=== PATIENT | male | born 2000 | race Hispanic/Latino ===

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

== ENCOUNTER 2024-01-07 15:24 | Emergency (ER) | payer SELFPAY ==
[~2024-01-07 15:24] MED LIST: Iopamidol 370 76% 100 ML VIAL ONE
[2024-01-07 15:58] LABS: #Basophils 0.1 thou/uL (0.0-0.2); #Eosinphils 0.1 thou/uL (0.0-0.7); #Lymphocytes 1.3 thou/uL (1.20-3.40); #Monocytes 0.6 thou/uL (0.11-0.59); #Neutrophils 11.2 thou/uL (1.40-6.50); %Basophils 0.6 % (0.0-1.0); %Eosinophils 0.4 % (0.0-10.0); %Lymphocytes 9.8 % (21.0-51.0); %Monocytes 4.8 % (0.0-10.0); %Neutrophils 84.4 % (42.0-75.0); Hematocrit 43.6 % (42.0-52.0); Mean Corpuscular Hemoglobin 30.6 pg (27.0-31.0); Mean Corpuscular Volume 95.5 fl (78.0-98.0); Mean Platelet Volume 6.5 fL (7.4-10.4); Platelet Count 280 10x3/uL (130-400); RBC Distribution Width 11.8 % (11.5-14.5); Red Blood Cell (RBC) Count 4.57 mill/uL (4.70-6.10); White Blood Cell (WBC) Count 13.3 10x3/uL (4.8-10.8)
[2024-01-07 16:12] LABS: ALT (SGPT) 15 U/L (8-55); AST (SGOT) 17 U/L (5-34); Albumin 4.3 g/dL (3.5-5.0); Alkaline Phosphatase 55 U/L (40-110); Anion Gap 17 mmol/L (10-20); BUN (Urea Nitrogen) 11 mg/dL (8.9-20.6); Bilirubin, Total 0.6 mg/dL (0.2-1.2); Calc. Creatinine Clearance 0 mL/min (70-130); Calcium 9.4 mg/dL (7.8-10.44); Carbon Dioxide 21 mmol/L (22-29); Chloride 107 mmol/L (98-107); Estimated GFR 123; Globulin 2.5 g/dL (2.4-3.5); Glucose 102 mg/dL (70-105); Potassium 3.6 mmol/L (3.5-5.1); Protein, Total 6.8 g/dL (6.0-8.3); Sodium 141 mmol/L (136-145)
[2024-01-07 16:13] LABS: Troponin I 0.014 ng/mL (< 0.028)
[2024-01-07 16:14] LABS: Acetaminophen Less than 10 mcg/mL (Less than 10); Alcohol Less than 10.0 mg/dL (Less than 10); Lipase 72 U/L (8-78); Magnesium 1.8 mg/dL (1.6-2.6); Salicylate Less than 8.0 mg/dL (Less than 8.0)
[2024-01-07] MEDS ORDERED: Lactated Ringer's 1,000 ML ONE (16:17)
[2024-01-07] MEDS ORDERED: Lorazepam 2 MG/ML VIAL ONE (16:17)
[2024-01-07 16:49] LABS: Amphetamine Not Detected (NotDetected); Barbiturates Screen Not Detected (NotDetected); Benzodiazepine Screen Not Detected (NotDetected); Cocaine Metabolite Screen Not Detected (NotDetected); Methadone Not Detected (NotDetected); Methamphetamine Not Detected (NotDetected); Opiate Screen Not Detected (NotDetected); Oxycodone Screen Not Detected (NotDetected); Phencyclidine (PCP) Not Detected (NotDetected); THC/Cannabinoid Screen Detected (NotDetected); Tricyclic Screen Not Detected (NotDetected)
[2024-01-07] MEDS ORDERED: Aspirin Chewable 81 MG TAB ONE (17:49)
[2024-01-07] MEDS ORDERED: Dicyclomine 10 MG CAP ONE (18:02)
[2024-01-07] MEDS ORDERED: Acetaminophen 500 MG TAB ONE (18:02)
== END 2024-01-07 20:21 | disposition short-term general hospital (02) ==
LOC: MADERS 15:24
DX: R07.89 Other chest pain (principal); S09.90XA Unspecified injury of head, initial encounter; R55 Syncope and collapse; R45.851 Suicidal ideations; E78.5 Hyperlipidemia, unspecified; Z87.891 Personal history of nicotine dependence
CPT/HCPCS: 70450; 71045; 71275; 72125; 74174; 80053; 80306; 80307; 83690; 83735; 84443; 84484; 85025; 93005; 94760; 96361; 96374; J2060; J7120; Q9967